=== PATIENT | male | born 1965 | race Caucasian/White ===

== ENCOUNTER 2017-05-13 12:51 | Inpatient (IN) | payer MEDICAID, OTHER ==
[2017-05-13 13:24] LABS: PLATELET COUNT 243 10^3/uL (150-400)
[2017-05-13] MEDS ORDERED: NS 1,000 ML IV ONE (13:29)
[2017-05-13] MEDS ORDERED: ONDANSETRON 4 MG/2 ML VIAL IVP ONE (13:29)
--- NOTE | 2017-05-13 13:29 | EDPHY ---
General Narrative: CHIEF COMPLAINT: Abdominal pain HISTORY OF PRESENT ILLNESS: Patient complains of right lower quadrant abdominal pain. Pain started yesterday afternoon or early evening. It started periumbilical and has migrated to the right lower quadrant. It is rated at 8/10. It is constant in duration. Associated with some nausea and vomiting earlier in the week preceding the pain, that he thought was "a stomach flu." He has had no diarrhea or constipation. He notes a fever at home with a T-max of a 101. No trauma or injury. No urinary complaints. No other associated complaints or modifying factors. REVIEW OF SYSTEMS: Ten systems reviewed and are negative unless otherwise noted in the HPI PCP: None SPECIALISTS: None PAST MEDICAL HISTORY: None PAST SURGICAL HISTORY: No abdominal surgeries. SOCIAL HISTORY: Nonsmoker. Occasional alcohol marijuana use. Works at a [employer]. FAMILY HISTORY: Noncontributory EXAMINATION General Appearance: Alert, no distress Head: normocephalic, atraumatic Eyes: Pupils equal and round, no conjunctival pallor or injection ENT, Mouth: Mucous membranes moist. No erythema or edema. Neck: Normal inspection, supple, non-tender Respiratory: Lungs are clear to auscultation. No wheezing, rhonchi or crackles Cardiovascular: Regular rate and rhythm. No murmur Gastrointestinal: Abdomen is soft and nondistended. There is tenderness in the right lower quadrant at McBurney's point. No guarding. Negative Rovsing. No tympany or rigidity. No CVA tenderness. Back: non-tender, no bony abnormalities Neurological: A&O, nonfocal, normal gait Skin: Warm and dry, no rash. No petechiae or purpura Extremities: Nontender, no pedal edema Psychiatric: Mood and affect normal DIFFERENTIAL DIAGNOSES: Including but not limited to appendicitis, colitis, diverticulitis, adenitis, constipation MDM: 1:29 p.m. Right lower quadrant pain with moderate tenderness in the right lower quadrant. There is no guarding. No peritonitis. Vital signs are within normal limits. Given the location of his pain and the history, I have ordered CT scan of the abdomen pelvis. Laboratory studies are also pending. He is in no acute distress but requesting pain medication and this has been ordered. 2:30 p.m. Laboratory studies reveal mild leukocytosis. There is isolated hyperbilirubinemia but no abnormality of the chemistry otherwise. CT scan pending. 2:[address] scan findings discussed between radiology and Dr. Gresham. No appendicitis but there is inflammation of the retroperitoneum of uncertain etiology, phlegmon versus inflammatory. I will proceed with medicine admission and General surgery has reviewed the CT scan in the ED at this time and does not feel there is a surgical finding. 2:50 p.m. Case discussed with hospitalist Dr. Charles. He will admit the patient to his service. He is admitted in stable condition. I have re-evaluated the patient at this time he is requesting further pain medication. This has been ordered. SUPERVISION: Patient was independently examined, but I discussed the case with my secondary supervising physician Dr. Gresham - Diagnostics Imaging Results: Imaging Impressions Abdomen CT 05/13/17 13:29 Impression: 1. Nonspecific retroperitoneal inflammatory phlegmon of unclear etiology extending from the caudal margin of the pancreas, surrounding the third and fourth portions of the duodenum, and noted along the anterior pararenal and aortocaval spaces. There is a concurrent distal duodenitis and a proximal jejunitis, and this is also seen in association with moderate bilateral hydronephrosis, right greater than left. Differential considerations favor an inflammatory versus infectious process (although an infiltrative neoplastic process is not entirely excluded); clinical correlation and follow-up to assure resolution are recommended. 2. Colonic diverticulosis, without active diverticulitis. 3. Normal CT appearance of the appendix. 4. Mild prostatomegaly. Dr. Darryl Diaz reviewed this with Dr. Luis Cole, and I also conveyed the results to Dr. Ricky Gresham. Findings were discussed at 14:49, on 05/13/2017. - History Smoking Status: Never smoked - Objective Vital Signs: Initial Vital Signs Temperature (C) 98.1 F 05/13/17 12:53 Heart Rate 78 05/13/17 12:53 Respiratory Rate 18 05/13/17 12:53 Blood Pressure 133/81 H 05/13/17 12:53 O2 Sat (%) 97 05/13/17 12:53 O2 Delivery Mode Room Air Allergies/Adverse Reactions: Penicillins Allergy (Mild, Verified 05/13/17 12:56) Rash Home Medications: Medication Instructions Recorded NK [No Known Home Meds] 05/13/17 Laboratory Results: Laboratory Results 05/13/17 13:15 05/13/17 13:15 05/13/17 05/13/17 05/13/17 13:15 13:15 13:15 WBC 12.61 10^3/uL H 10^3/uL (3.80-9.50) RBC 4.35 10^6/uL L 10^6/uL (4.40-6.38) Hgb 16.4 g/dL g/dL (13.7-17.5) Hct 43.8 % % (40.0-51.0) MCV 100.7 fL H fL (81.5-99.8) MCH 37.7 pg H pg (27.9-34.1) MCHC 37.4 g/dL H g/dL (32.4-36.7) RDW 12.0 % % (11.5-15.2) Plt Count 243 10^3/uL 10^3/uL (150-400) MPV 9.8 fL fL (8.7-11.7) Neut % (Auto) 82.9 % H % (39.3-74.2) Lymph % (Auto) 7.1 % L % (15.0-45.0) [place] % (Auto) 8.5 % % (4.5-13.0) Eos % (Auto) 0.9 % % (0.6-7.6) Baso % (Auto) 0.2 % L % (0.3-1.7) Nucleat RBC Rel Count 0.0 % % (0.0-0.2) Absolute Neuts (auto) 10.46 10^3/uL H 10^3/uL (1.70-6.50) Absolute Lymphs (auto) 0.89 10^3/uL L 10^3/uL (1.00-3.00) Absolute Monos (auto) 1.07 10^3/uL H 10^3/uL (0.30-0.80) Absolute Eos (auto) 0.11 10^3/uL 10^3/uL (0.03-0.40) Absolute Basos (auto) 0.03 10^3/uL 10^3/uL (0.02-0.10) Absolute Nucleated RBC 0.00 10^3/uL 10^3/uL (0-0.01) Immature Gran % 0.4 % % (0.0-1.1) Immature Gran # 0.05 10^3/uL 10^3/uL (0.00-0.10) PT 12.8 SEC SEC (12.0-15.0) INR 0.94 (0.83-1.16) APTT 25.8 SEC SEC (23.0-38.0) Sodium 137 mEq/L mEq/L (134-144) Potassium 4.1 mEq/L mEq/L (3.5-5.2) Chloride 97 mEq/L mEq/L (97-110) Carbon Dioxide 26 mEq/l mEq/l (22-31) Anion Gap 14 mEq/L mEq/L (8-16) BUN 12 mg/dL mg/dL (7-23) Creatinine 1.1 mg/dL mg/dL (0.7-1.3) Estimated GFR > 60 Glucose 111 mg/dL H mg/dL (70-100) Calcium 9.9 mg/dL mg/dL (8.5-10.4) Total Bilirubin 2.4 mg/dL H mg/dL (0.1-1.4) Conjugated Bilirubin 0.4 mg/dL mg/dL (0.0-0.5) Unconjugated Bilirubin 2.0 mg/dL H mg/dL (0.0-1.1) AST 45 IU/L IU/L (17-59) ALT 48 IU/L IU/L (21-72) Alkaline Phosphatase 113 IU/L IU/L (38-126) Total Protein 7.2 g/dL g/dL (6.3-8.2) Albumin 4.5 g/dL g/dL (3.5-5.0) Lipase 73 IU/L IU/L (23-300) Medications Given: Discontinued Medications Hydromorphone HCl (Dilaudid) 1 mg IVP EDNOW ONE Stop: 05/13/17 14:51 Last Admin: 05/13/17 14:53 Dose: 1 mg Sodium Chloride (Ns) 1,000 mls @ 0 mls/hr IV EDNOW ONE; Wide Open PRN Reason: Protocol Stop: 05/13/17 13:30 Last Admin: 05/13/17 13:36 Dose: 1,000 mls Morphine Sulfate (Morphine) 4 mg IVP EDNOW ONE Stop: 05/13/17 13:30 Last Admin: 05/13/17 13:36 Dose: 4 mg Ondansetron HCl (Zofran) 4 mg IVP EDNOW ONE Stop: 05/13/17 13:30 Last Admin: 05/13/17 13:36 Dose: 4 mg Departure - Departure Disposition: [facility] Inpatient Acute Clinical Impression: Disorder of retroperitoneal compartment Abdominal pain Qualifiers: Abdominal location: generalized Qualified Code(s): R10.84 - Generalized abdominal pain Condition: Good
[2017-05-13 13:41] LABS: INR 0.94 (0.83-1.16); PROTIME(PATIENT) 12.8 SEC (12.0-15.0)
[2017-05-13] MEDS ORDERED: IOPAMIDOL (ISOVUE-300) 100 ML BTL ONE (13:47)
[2017-05-13] MEDS ORDERED: HYDROmorphONE/DILAUDID 1 MG/ML INJ IVP ONE (14:50)
[2017-05-13] MEDS ORDERED: ONDANSETRON 4 MG/2 ML VIAL IVP PRN (17:05)
[2017-05-13] MEDS ORDERED: ONDANSETRON DISINTEGRATING 4 MG TAB PO PRN (17:05)
[2017-05-13] MEDS: D5W 1/2 NS W/ 20 KCl/L 1,000 ML IV SCH (17:36)
[2017-05-13] MEDS: HYDROmorphONE/DILAUDID 1 MG/ML INJ IVP PRN ×2 (17:44→21:02)
--- NOTE | 2017-05-13 19:30 | GHP ---
[f rep st] HISTORY AND PHYSICAL DATE OF ADMISSION: 05/13/2017 CHIEF COMPLAINT: Abdominal pain. HISTORY OF PRESENT ILLNESS: 52-year-old male with minimal medical problems, who presented with 4 day s of worsening abdominal pain. It started as epigastric pain, but now has included right lower quadr ant and right flank pain. Pain is constant. It does not get worse or better with eating. He initia lly thought he was constipated, but bowel movements have not helped the pain. He has had some chills and a fever up to 101. He has not had any problems urinating. No blood in his stool or dysuria. Candido pham has never had any kidney stones. He does have a history of GERD, but he usually feels that in his chest, and that ranitidine and antacids work. This has worsened since , but the ranitidi ne and antacids have not helped his pain at all. He denies any diarrhea. REVIEW OF SYSTEMS: A 10-point review of systems was obtained, and other than stated was negative. PAST MEDICAL HISTORY: 1. GERD. 2. Had a left kidney obstruction when he was 4, although he does not know the details of this. He h as had surgery on his kidney, and does know it does not work that well. MEDICATIONS: P.r.n. ranitidine and [id number] antacids. SOCIAL HISTORY: No smoking. Works [employer]. FAMILY HISTORY: No urological issue or malignancies. PHYSICAL EXAMINATION: VITAL SIGNS: Afebrile. Blood pressure is 127/79, heart rate 76, oxygen satur ation 96% on room air. GENERAL: Patient is well developed, no apparent distress. HEENT: Nonicteri c sclerae. Extraocular movements intact. Moist mucous membranes. NECK: Supple. No thyromegaly. LUNGS: Good effort. Clear to auscultation bilaterally. CARDIOVASCULAR: Regular rate and rhythm. No murmurs or gallops. ABDOMEN: Decreased bowel sounds. Soft, but a little bit on the firmer side, mild epigastric, but significant right lower quadrant tenderness as well as right tenderness. No re bound or guarding. EXTREMITIES: No clubbing, cyanosis, or edema. SKIN: Without rash. Warm, dry, intact. NEUROLOGIC: Alert and oriented x3. Moving all 4 extremities equally. PSYCH: Normal mood and affect. LABORATORY DATA: White blood cell count is 12, MCV elevated at 100. Total bilirubin was 2.5, mostly unconjugated. UA essentially negative. CT scan of the abdomen and pelvis shows significant retroperitoneal inflammation and a phlegmon adjac ent to pancreas, that also includes the 3rd and 4th portions of the duodenum. There is also hydroneph rosis on the right with compensatory hypertrophy. ASSESSMENT: This is a 52-year-old male presenting with abdominal pain and retroperitoneal inflammati on of uncertain etiology. PLAN: I discussed the case with both Urology, Dr. Isbell and Gastroenterology. Urology feels that th is is not a primary urological problem, that he could have chronic hydronephrosis for some time, or t he primary inflammatory process could be causing some obstruction as well. At this point they do not feel like any intervention would be useful. Discussed the case with Gastroenterology, and they will come see the patient. They are not sure if endoscopy would be helpful. In the meantime, we will st art him on Protonix. We will check a GI pathogen profile to see if there is any viral or bacterial i nfections that may be causing this. At this point, we will continue PPI and bowel rest, and see how things proceed. Surgery did see the patient as well, and they did not believe that he has appendicit is. /[id number]/MODL
[2017-05-13] MEDS: PANTOPRAZOLE SODIUM 40 MG VIAL IVP SCH (21:07)
[2017-05-14] MEDS: HYDROmorphONE/DILAUDID 1 MG/ML INJ IVP PRN ×6 (02:01→22:12)
[2017-05-14] MEDS: D5W 1/2 NS W/ 20 KCl/L 1,000 ML IV SCH ×2 (03:36→15:33)
[2017-05-14 05:37] LABS: PLATELET COUNT 207 10^3/uL (150-400)
[2017-05-14] MEDS: PANTOPRAZOLE SODIUM 40 MG VIAL IVP SCH ×2 (08:22→19:56)
--- NOTE | 2017-05-14 08:24 | HOSPPROG ---
Hospitalist Progress Note Objective: Vital Signs Temp Pulse Resp BP Pulse Ox 37.1 C 86 12 114/73 94 05/14/17 07:17 05/14/17 07:17 05/14/17 07:17 05/14/17 07:17 05/14/17 07:17 Microbiology 05/14/17 01:46 Gastrointestinal Tract Panel (PCR) - Final Stool No Organism Detected Laboratory Results 05/14/17 04:59 05/14/17 04:59 05/13/17 05/14/17 05/15/17 05:59 05:59 05:59 Intake Total 1000 Balance 1000 PT 12.8 SEC (12.0-15.0) 05/13/17 13:15 INR 0.94 (0.83-1.16) 05/13/17 13:15 Laboratory Tests 05/13/17 05/13/17 05/14/17 13:15 13:15 04:59 WBC 12.61 H 11.74 H Hgb 16.4 13.1 L Creatinine 1.1 Total Bilirubin 2.4 H Unconjugated Bilirubin 2.0 H Albumin 05/14/17 04:59 WBC Hgb Creatinine 1.8 H D Total Bilirubin 2.2 H Unconjugated Bilirubin 1.7 H Albumin 3.3 L ICD10 Worksheet Patient Problems: Problems Problem Status Onset Abdominal pain Acute Disorder of retroperitoneal compartment Acute
--- NOTE | 2017-05-14 11:01 | PDMN ---
Medical Necessity Medical necessity: Pt meets IP criteria per MD; est los >2 mn for eval/tx of abdominal pain & retroperitoneal inflammation of uncertain etiology; admit for further workup/monitoring, Urology/GI/Surgery consults, IVFs, IV pain meds/IV Protonix; hx GERD; per H&P & order 05/13/17
--- NOTE | 2017-05-14 13:42 | GCON ---
[f rep st] CONSULTATION DATE OF CONSULTATION: 05/14/2017 REASON FOR CONSULTATION: Abdominal pain. Dear Dr. Charles: Thank you very kindly for asking me to evaluate the patient in consultation for a chief complaint of abdominal pain and fever. He is a pleasant 52-year-old male without significant previous medical history, who developed significant abdominal pain that was periumbilical and interestingly right-sided, radiating into the right flank, that began on [place]. He felt nauseated. He tried to vomit because he felt like it would help him improve his symptoms, but was unable to. He did not have a bowel movement for a few days, but then started passing gas and stool which was somewhat soft, but no real different than his usual bowel pattern. There was no hematochezia or diarrhea. Over the last week since [place] his pain has been intermittently quite problematic, describing sharp, stabbing pain with cramping that got severe enough that he presented to the emergency room last night. A CT scan of the abdomen and pelvis was performed, that showed a significant retroperitoneal inflammatory reaction adjacent to the tail of the pancreas, but also involving some of the later portions of the duodenum and jejunum. These findings are nonspecific and the cause of it is unknown. We are asked to assist with further evaluation and management. PAST MEDICAL HISTORY: Significant for some mild heartburn. 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 MEDICATIONS: Medications on admission are none. PAST SOCIAL HISTORY: No tobacco, no alcohol. He lives and works in [place]. FAMILY HISTORY: Negative for malignancies such as lymphoma, gastric cancer or colon cancer. ALLERGIES: Penicillin. REVIEW OF SYSTEMS: CONSTITUTIONAL: He has been having fever as high as 101. Some nausea. His appetite is pretty poor. He has had some sweats at night, but this has been intermittent. No weight loss that he is aware of. HEENT: Denies headache, sore throat, rhinorrhea, ear pain, neck discomfort or swallowing difficulty. PULMONARY: Denies cough or shortness of breath. CARDIOVASCULAR: Denies chest pain, palpitations, or syncope. GI: He denies dysphagia. He does have some mild heartburn, but this does not sound too significant. He has been nauseous, but no vomiting. He denies diarrhea. He has felt somewhat constipated, but describing this as intermittently not being able to pass gas, although today he is passing flatus. His pain is much improved since admission. GENITOURINARY: He denies any dysuria or hematuria. MUSCULOSKELETAL: Denies myalgias or joint pain. NEUROLOGIC: Denies paresthesias, falls or weakness. DERMATOLOGIC: No rash or jaundice. HEMATOLOGIC: Denies bruising or epistaxis or bleeding. ENDOCRINE: Denies heat or cold intolerance. No polyuria. Denies polydipsia. PSYCHIATRIC: Denies depression, anxiety, or insomnia. PHYSICAL EXAM: VITAL SIGNS: Blood pressure 114/73, pulse of 86, respirations are 12, oxygenation is 94% on room air, temperature is 37.1 with a T-max of 37.4. GENERAL: Healthy and comfortable-appearing thin male, in no acute distress. HEENT: Normocephalic, atraumatic. Oropharynx clear. Sclerae anicteric. NECK: Supple without adenopathy to the anterior cervical chain. No supraclavicular adenopathy. No thyromegaly. No carotid bruit. No jugular venous distention. PULMONARY: Clear to auscultation with good respiratory excursion. Equal fremitus. No chest wall tenderness. CARDIOVASCULAR: Regular rate and rhythm without rub. No obvious gallop. GI: The abdomen is nondistended. Normoactive bowel sounds are present. No bruit or ascites. No organomegaly. No tenderness, rebound, guarding or palpable mass. MUSCULOSKELETAL: Normal gait and station. No palmar erythema. No clubbing. No joint deformity, swelling or warmth. DERMATOLOGIC: No rash or jaundice. NEUROLOGIC: Alert to person, place, and time. Normal speech and affect. Appropriate and able to provide his own history. Motor is a nonfocal exam. Gait does not appear ataxic nor asterixis. DATABASE: Includes a white count of 11.7, hematocrit 37.1 with an MCV of 102, platelets are 207, INR 0.94, PT is 12.8. Sodium 138, potassium 4.3, chloride 104, bicarbonate 21, BUN 15, creatinine is elevated today at 1.8 from an admission creatinine of 1.1, total bilirubin is elevated at 2.2 with a direct of 0.5; unconjugated 1.7. AST 22, ALT 35, alkaline phosphatase 88. Lipase on admission is 73. CT scan of the abdomen and pelvis on May 13, 2017: This shows fatty liver that is mildly enlarged, bile ducts are normal, gallbladder is normal. The pancreas is normal in enhancement and contour; however, there is an inflammatory reaction in the pararenal space along the caudal margin of the pancreatic body and tail that extends inferiorly involving the 3rd and 4th portion of the duodenum which is mildly thickened. There is also some inflammatory thickening involving the right anterior perirenal space adjacent to the proximal right ureter. Spleen and adrenal glands are normal. The right kidney is larger than the left with moderate bilateral hydronephrosis. There is no obstructing lesion. The stomach 1st and 2nd portions of the duodenum are normal. The inflammatory stranding is around the 3rd and 4th portions extending down to the ligament of Treitz and also into the proximal jejunum, but the mid and distal jejunum appeared normal. There were colonic diverticula without diverticulitis. There is no pneumoperitoneum. The vascular structures of the mesentery are normal. The portal vein is patent. The abdominal wall is normal. The urinary bladder is distended with asymmetric wall thickening. No urinary bladder calculus. IMPRESSION: 1. Abdominal pain, principally right-sided associated. 2. Nausea. 3. Radiographic abnormality including retroperitoneal inflammation extending around the right pararenal space. 4. Interval development of acute renal insufficiency. 5. Duodenal and jejunal thickening of an unclear nature. 6. Unconjugated hyperbilirubinemia. RECOMMENDATIONS: 1. Endoscopic evaluation of the duodenal and jejunal thickening could be performed with enteroscopy to help with diagnostic evaluation, but clinically I feel that the process is something more involving the right retroperitoneum and a renal process, especially given the development of his acute renal insufficiency. This associated with his indirect hyperbilirubinemia does raise the possibility of possible hemolytic uremic syndrome or some other diagnosis that could be presenting systemically in this way. 2. Stool PCR for infection. U/A for proteinuria 3. I would recommend a clear liquid diet and Nephrology consultation at first. 4. If endoscopic evaluation is required for diagnostic purposes, this could be done tomorrow. I would recommend n.p.o. after midnight and repeating his labs and awaiting Nephrology's consultation input to see if there is something systemic can be diagnosed without the need for enteroscopy. 5. Laparoscopy could also be used to identify the process in the retroperitoneal space, but I think this should only be done after enteroscopy is attempted. 6. I have spoken with Dr. Webb about his case. We will pursue a Nephrology consultation first and await labs. I will reassess tomorrow and see if the need for enteroscopy exists which we can perform for tissue biopsy and diagnosis. 7. Currently I am unable to really explain the retroperitoneal inflammatory process definitively, but my instinct feels that this is infectious and may or may not be primarily GI in nature. 8. The bladder wall thickening and hydronephrosis may also need to be addressed with urology. Thank you very kindly for allowing me to be involved in the care for the patient. He is aware of our diagnostic options and agrees with following a conservative plan with further specialty consultation, advancing his diet and consideration for enteroscopy tomorrow if needed. /[id number]/MODL MTDD
--- NOTE | 2017-05-14 14:40 | ASMTCMCOM ---
CM Note CM Note Notes: 05/12/2018 Case Management Note Reviewed chart. Pt admitted for intractable abdominal pain and retroperitoneal inflammation. There are no case management d/c needs identifiied at this time d/t pt age and activity levels prior to admission. There are no PT or OT evals ordered at this time. Case Management d/c poc: anticipating independent with follow up as directed. Case Management available if needs change. Date Signed: 05/14/2017 02:40 PM Electronically Signed By:Stacey Bagley RN
--- NOTE | 2017-05-14 17:40 | HOSPPROG ---
Hospitalist Progress Note Assessment/Plan: 52-year-old male new onset of epigastric and right-sided abdominal pain in the last week. CT scan post admission notes phlegmon in the area of the 2nd and 3rd part of the duodenum with duodenitis and ileitis also noted. Patient has also developed new onset renal failure and was noted to have bilateral hydronephrosis on the CT scan. Etiology of this mass is unclear. The pancreas appears normal on CT. He has received IV fluids today and a repeat BMP will be done to assess if the elevated creatinine is secondary to pre renal state. Urology is reviewed the case and finds no urologic issues. Surgery finds no immediate surgical issues. GI is consulted is considering and EGD on 05/15. Patient new to me today. Case was discussed with Gastroenterology and CT scan was reviewed with Radiology. -acute abdominal pain with a phlegmon in the retroperitoneal space. Lipase is normal -acute renal failure, possible hepatorenal syndrome -bilateral hydronephrosis of undetermined etiology. -history of GERD Plan: Hydration through the night with a clear liquid diet and then NPO after midnight for possible EGD in the a.m.. The BMP will be repeated to assess his renal function as to whether it was pre renal. If the renal impairment persistent nephrology consult will be obtained - Subjective: Reports some abdominal pain but says that maybe slightly improved. Will appetite is present but he does not have any vomiting. He has moved his bowels in the last several days without hematemesis or hematochezia Objective: Vital Signs Temp Pulse Resp BP Pulse Ox 37 C 82 14 113/62 95 05/14/17 15:28 05/14/17 15:28 05/14/17 15:28 05/14/17 15:28 05/14/17 15:28 Microbiology 05/14/17 01:46 Gastrointestinal Tract Panel (PCR) - Final Stool No Organism Detected Laboratory Results 05/14/17 04:59 05/14/17 04:59 05/13/17 05/14/17 05/15/17 05:59 05:59 05:59 Intake Total 1000 638 Balance 1000 638 PT 12.8 SEC (12.0-15.0) 05/13/17 13:15 INR 0.94 (0.83-1.16) 05/13/17 13:15 - Time Spent With Patient Time Spent with Patient: greater than 35 minutes Time Spent with Patient: Greater than 35 minutes spent on this patients care, greater than 50% of time spent counseling, educating, and coordinating care regarding the above mentioned plan. - Pending Discharge Pending Discharge Within 24 Hours: No Pending Discharge Within 48 Hours: No - Physical Exam Constitutional: chronically ill appearing Eyes: PERRL, anicteric sclera Ears, Nose, Mouth, Throat: moist mucous membranes Cardiovascular: regular rate and rhythym, no murmur, rub, or gallop Respiratory: no respiratory distress, no rales or rhonchi, clear to auscultation Gastrointestinal: tenderness, guarding, distension Genitourinary: no bladder fullness Skin: warm Musculoskeletal: full muscle strength Neurologic: AAOx3, CN II-XII Intact Psychiatric: interacting appropriately ICD10 Worksheet Patient Problems: Problems Problem Status Onset Abdominal pain Acute Disorder of retroperitoneal compartment Acute
[2017-05-14 18:35] LABS: PLATELET COUNT 222 10^3/uL (150-400)
[2017-05-14] MEDS: ACETAMINOPHEN 325 MG TAB PO PRN (22:52)
[2017-05-15] MEDS: D5W 1/2 NS W/ 20 KCl/L 1,000 ML IV SCH (00:39)
[2017-05-15] MEDS: HYDROmorphONE/DILAUDID 1 MG/ML INJ IVP PRN ×3 (03:43→14:58)
[2017-05-15 05:17] LABS: PLATELET COUNT 196 10^3/uL (150-400)
[2017-05-15] MEDS: PANTOPRAZOLE SODIUM 40 MG VIAL IVP SCH ×2 (10:02→20:23)
--- NOTE | 2017-05-15 10:18 | HOSPPROG ---
Hospitalist Progress Note Assessment/Plan: 52-year-old male new onset of epigastric and right-sided abdominal pain in the last week. CT scan post admission notes phlegmon in the area of the 2nd and 3rd part of the duodenum with duodenitis and ileitis also noted. Patient has also developed new onset renal failure and was noted to have bilateral hydronephrosis on the CT scan. Etiology of this mass is unclear. The pancreas appears normal on CT. He has received IV fluids today and a repeat BMP will be done to assess if the elevated creatinine is secondary to pre renal state. Urology is reviewed the case and finds no urologic issues. Surgery finds no immediate surgical issues. GI is consulted is considering and EGD on 05/15. Patient new to me today. Case was discussed with Gastroenterology and CT scan was reviewed with Radiology. -acute abdominal pain with a phlegmon in the retroperitoneal space. Lipase is normal -acute renal failure, possible hepatorenal syndrome -bilateral hydronephrosis of undetermined etiology. -history of GERD Plan: Hydration through the night with a clear liquid diet and then NPO after midnight for possible EGD in the a.m.. The BMP will be repeated to assess his renal function as to whether it was pre renal. If the renal impairment persistent nephrology consult will be obtained - Subjective: Patient feeling well without complaints just has some fullness in his abdomen without nausea Objective: Vital Signs Temp Pulse Resp BP Pulse Ox 37.1 C 91 14 118/81 H 95 05/15/17 07:16 05/15/17 07:16 05/15/17 07:16 05/15/17 07:16 05/15/17 07:16 Microbiology 05/14/17 01:46 Gastrointestinal Tract Panel (PCR) - Final Stool No Organism Detected Laboratory Results 05/15/17 04:42 05/15/17 04:42 05/14/17 05/15/17 05/16/17 05:59 05:59 05:59 Intake Total 1000 1838 Output Total 1000 Balance 1000 838 PT 12.8 SEC (12.0-15.0) 05/13/17 13:15 INR 0.94 (0.83-1.16) 05/13/17 13:15 Laboratory Tests 05/13/17 05/13/17 05/14/17 13:15 13:15 04:59 WBC 12.61 H 11.74 H Hgb 16.4 Creatinine 1.1 Unconjugated Bilirubin 2.0 H Albumin 05/14/17 05/14/17 05/14/17 04:59 18:27 18:27 WBC 12.11 H Hgb Creatinine 1.8 H D 2.0 H Unconjugated Bilirubin 1.7 H Albumin 05/15/17 05/15/17 04:42 04:42 WBC 9.81 H Hgb 12.6 L Creatinine 1.8 H Unconjugated Bilirubin 1.5 H Albumin 3.0 L - Time Spent With Patient Time Spent with Patient: greater than 35 minutes Time Spent with Patient: Greater than 35 minutes spent on this patients care, greater than 50% of time spent counseling, educating, and coordinating care regarding the above mentioned plan. - Pending Discharge Pending Discharge Within 24 Hours: No Pending Discharge Within 48 Hours: No - Physical Exam Constitutional: no apparent distress Eyes: PERRL Ears, Nose, Mouth, Throat: moist mucous membranes, hearing normal Cardiovascular: regular rate and rhythym, no murmur, rub, or gallop Respiratory: no respiratory distress, no rales or rhonchi Gastrointestinal: no palpable masses, tenderness, distension Skin: warm Musculoskeletal: full muscle strength ICD10 Worksheet Patient Problems: Problems Problem Status Onset Abdominal pain Acute Disorder of retroperitoneal compartment Acute
[2017-05-15] MEDS ORDERED: LR 1,000 ML IV ONE (12:10)
[2017-05-15] MEDS ORDERED: PROPOFOL/EMULSION 500 MG/50 ML BOTTLE IV ONE (12:27)
[2017-05-15] MEDS ORDERED: PROPOFOL 200 MG/20 ML VIAL ONE (12:44)
[2017-05-15] MEDS ORDERED: LIDOCAINE 2% 5 ML SDV ONE (12:51)
[2017-05-15] MEDS ORDERED: METOCLOPRAMIDE 10 MG/2 ML VIAL IVP PRN (12:54)
[2017-05-15] MEDS ORDERED: fentaNYL 100 MCG/2 ML INJ IVP PRN (12:54)
[2017-05-15] MEDS ORDERED: DIAZEPAM 10 MG/2 ML SYR IVP PRN (12:54)
[2017-05-15] MEDS ORDERED: LR 500 ML IV PRN (12:54)
[2017-05-15] MEDS ORDERED: NALOXONE HCL 0.4 MG/ML INJ IVP PRN (12:54)
[2017-05-15] MEDS ORDERED: DEXAMETHASONE 4 MG/ML VIAL IVP PRN (12:54)
[2017-05-15] MEDS ORDERED: ALBUTEROL 3 ML DEYVIAL IH PRN (12:54)
--- NOTE | 2017-05-15 12:54 | PDANEPAE ---
ANE Past Medical History - Pulmonary History Hx Oxygen in Use at Home: No Hx Sleep Apnea: No Sleep Apnea Screening Result - Last Documented: Negative - Endocrine History Hx Diabetes: No - Chronic Pain History Chronic Pain: No ANE Review of Systems Review of Systems: ANE Patient History - Allergies Allergies/Adverse Reactions: Penicillins Allergy (Mild, Verified 05/13/17 12:56) Rash - Home Medications Home Medications: NK [No Known Home Meds] 05/13/17 [Last Taken Unknown] - NPO status NPO Since - Liquids (Date): 05/15/17 NPO Since - Liquids (Time): 00:01 NPO Since - Solids (Date): 05/15/17 NPO Since - Solids (Time): 00:01 - Smoking Hx Smoking Status: Never smoked ANE Labs/Vital Signs - Labs Result Diagrams: 05/15/17 04:42 05/15/17 04:42 - Vital Signs Blood Pressure: 130/98 Heart Rate: 91 Respiratory Rate: 14 O2 Sat (%): 99 Height: 175.26 cm Weight: 71.804 kg ANE Physical Exam - Airway Neck exam: FROM Mallampati Score: Class 1 Mouth exam: normal dental/mouth exam - Pulmonary Pulmonary: no respiratory distress, no rales or rhonchi, clear to auscultation - Cardiovascular Cardiovascular: regular rate and rhythym, no murmur, rub, or gallop - ASA Status ASA Status: III ANE Anesthesia Plan Anesthesia Plan: GA with mask
--- NOTE | 2017-05-15 12:55 | PDGENHP ---
History & Physical Chief Complaint: abdominal pain History of Present Illness: 52 year old male presents for evaluation of abnormal imaging and abdominal pain. C/o of midepigastrium and right sided pain. CT scan revealed inflammation in duodenum and jejunum. Pertinent Past, Social, Family History: see consult note by Dr. Hernandez. Relevant Physical Exam: HEENT: anicteric. CV: RRR + s1s2. lungs: CTAB No w/r/ r. Abd: + tenderness in upper quadrants. Cardiorespiratory Assessment: ASA 3
[2017-05-15] MEDS ORDERED: NS 500 ML IV SCH (13:00)
--- NOTE | 2017-05-15 13:09 | GIREPORT ---
[facility] - Endoscopy Department Patient Name: Nain Del Real Procedure Date: 05/15/2017 11:45 AM Patient Type: Inpatient Attending MD/ ER Physician: Esdras Choe MD Procedure: Small bowel enteroscopy Indications: Unexplained epigastric abdominal distress/pain, Unexplained abdominal distress/pain in the right upper quadrant, Abnormal abdominal CT Patient Profile: 52 year old male presents for evaluation of abdominal pain (midepi and RUQ) as well as abnormal imaging. Providers: Esdras Choe MD Medicines: Monitored Anesthesia Care Complications: No immediate complications. Estimated blood loss: Minimal. Description of Procedure: After obtaining informed consent, the endoscope was passed under direct vision. Throughout the procedure, the patient's blood pressure, pulse, and oxygen saturations were monitored continuously. The Colonoscope was introduced through the mouth, and advanced to the mid-jejunum. After obtaining informed consent, the endoscope was passed under direct visio n. Throughout the procedure, the patient's blood pressure, pulse, and oxyg en saturations were monitored continuously.The small bowel enteroscopy was accomplished without difficulty. The patient tolerated the procedure we ll. Findings: The examined esophagus was normal. A small hiatal hernia was present. Patchy mildly erythematous mucosa was found in the gastric body and in the gastric antrum. Biopsies were taken with a cold forceps for histology. The pylorus was 80cms from the gums. There was no evidence of significant pathology in the entire examined duodenum. Biopsies were taken with a cold forceps for histology. There was no evidence of significant pathology in the mid-jejunum. Biop sies were taken with a cold forceps for histology. The scope was advanced approximately 90cms from the pylorus. Estimated Blood Loss: Estimated blood loss was minimal. Post Op Diagnosis: - Normal esophagus. - Small hiatal hernia. - Erythematous mucosa in the gastric body and antrum. Biopsied. - Normal examined duodenum. Biopsied. - Etiology? No obvious cause of symptoms seen. Doubt biopsies will be revealing. Infectious versus inflammatory versus pancreatitis versus ot her? Will recheck amylase and lipase level. Await biopsy results. - The examined portion of the jejunum was normal. Biopsied. Recommendation: - [facility]. - Clear liquid diet. - Await pathology results. - Blood work. - Thank you for allowing me to participate in the care of your patient. Attending Participation: I personally performed the entire procedure. Esdras Choe MD Esdras Choe MD 05/15/2017 1:08:45 PM This report has been signed electronicallyEsdras Choe MD Number of Addenda: 0 Note Initiated On: 05/15/2017 11:45 AM [email or web address]}
--- NOTE | 2017-05-15 13:15 | POSTANESTH ---
Post Anesthetic Evaluation Cardiovascular Status: Normal, Stable, Similar to Pre-Op Cond Respiratory Status: Normal, Stable, Similar to Pre-op Cond. Level of Consciousness/Mental Status: Can Participate in Eval Pain Control: Adequate, Prn Tx Ordered Nausea/Vomiting Control: Adequate, Prn Tx Ordered Complications Possibly Related to Anesthesia: None Noted
--- NOTE | 2017-05-15 13:59 | PDCONSULT ---
[employer] Note: CC: Abdominal pain HPI: The patient is a 52 y/o M with a known h/o congenital renal disease requiring surgery at age 4 as well as GERD. He presented a couple of days ago after 1 weeks of central abdominal pain with some vomiting. No fevers, diarrhea or other ROS however he thought he had "the flu." He admits to some NSAID use and no new abx. Had a CT with contrast upon admission that revealed b/l hydronephrosis R>L with chronic cortical scarring on the left, which is the kidney he knew "did not work." He has no h/o nephrolithiasis and denies symptoms of UTI, LE edema or other ROS. Currently feeling improved with pain medications, however, notes he has been using increased doses of PPI's recently. PMH: GERD PSH: Non-smoker, drinks 15 ETOH per week PFH: Non-contributory, no renal disease PSX: Renal surgery, varicose vein surgery, anal fissure repair 2004 ROS: Negative except as per HPI. Meds: List reviewed. Allergies: PCN Objective: Temp Pulse Resp BP Pulse Ox 36.8 C 78 16 131/81 H 95 05/15/17 13:55 05/15/17 13:55 05/15/17 13:55 05/15/17 13:55 05/15/17 13:55 Physical Exam: Gen: A+Ox3, NAD HEENT: EOMI, no jaundice Neck: Supple, no lymphadenopathy CV: RRR, no friction rub RESP: CTA b/l ABD: Soft, NT, ND, +BS EXT: No edema Neuro: Non-focal Labs: WBC 9.81 10^3/uL (3.80-9.50) H 05/15/17 04:42 RBC 3.49 10^6/uL (4.40-6.38) L 05/15/17 04:42 Hgb 12.6 g/dL (13.7-17.5) L 05/15/17 04:42 Hct 36.1 % (40.0-51.0) L 05/15/17 04:42 MCV 103.4 fL (81.5-99.8) H 05/15/17 04:42 MCH 36.1 pg (27.9-34.1) H 05/15/17 04:42 MCHC 34.9 g/dL (32.4-36.7) 05/15/17 04:42 RDW 12.0 % (11.5-15.2) 05/15/17 04:42 Plt Count 196 10^3/uL (150-400) 05/15/17 04:42 MPV 9.8 fL (8.7-11.7) 05/15/17 04:42 Neut % (Auto) 77.6 % (39.3-74.2) H 05/15/17 04:42 Lymph % (Auto) 10.6 % (15.0-45.0) L 05/15/17 04:42 [place] % (Auto) 9.1 % (4.5-13.0) 05/15/17 04:42 Eos % (Auto) 2.1 % (0.6-7.6) 05/15/17 04:42 Baso % (Auto) 0.3 % (0.3-1.7) 05/15/17 04:42 Nucleat RBC Rel Count 0.0 % (0.0-0.2) 05/15/17 04:42 Absolute Neuts (auto) 7.61 10^3/uL (1.70-6.50) H 05/15/17 04:42 Absolute Lymphs (auto) 1.04 10^3/uL (1.00-3.00) 05/15/17 04:42 Absolute Monos (auto) 0.89 10^3/uL (0.30-0.80) H 05/15/17 04:42 Absolute Eos (auto) 0.21 10^3/uL (0.03-0.40) 05/15/17 04:42 Absolute Basos (auto) 0.03 10^3/uL (0.02-0.10) 05/15/17 04:42 Absolute Nucleated RBC 0.00 10^3/uL (0-0.01) 05/15/17 04:42 Immature Gran % 0.3 % (0.0-1.1) 05/15/17 04:42 Immature Gran # 0.03 10^3/uL (0.00-0.10) 05/15/17 04:42 PT 12.8 SEC (12.0-15.0) 05/13/17 13:15 INR 0.94 (0.83-1.16) 05/13/17 13:15 APTT 25.8 SEC (23.0-38.0) 05/13/17 13:15 Sodium 136 mEq/L (134-144) 05/15/17 04:42 Potassium 4.4 mEq/L (3.5-5.2) 05/15/17 04:42 Chloride 104 mEq/L (97-110) 05/15/17 04:42 Carbon Dioxide 22 mEq/l (22-31) 05/15/17 04:42 Anion Gap 10 mEq/L (8-16) 05/15/17 04:42 BUN 15 mg/dL (7-23) 05/15/17 04:42 Creatinine 1.8 mg/dL (0.7-1.3) H 05/15/17 04:42 Estimated GFR 40 05/15/17 04:42 Glucose 114 mg/dL (70-100) H 05/15/17 04:42 Calcium 8.4 mg/dL (8.5-10.4) L 05/15/17 04:42 Total Bilirubin 2.1 mg/dL (0.1-1.4) H 05/15/17 04:42 Conjugated Bilirubin 0.6 mg/dL (0.0-0.5) H 05/15/17 04:42 Unconjugated Bilirubin 1.5 mg/dL (0.0-1.1) H 05/15/17 04:42 AST 28 IU/L (17-59) 05/15/17 04:42 ALT 40 IU/L (21-72) 05/15/17 04:42 Alkaline Phosphatase 119 IU/L (38-126) 05/15/17 04:42 Total Protein 5.2 g/dL (6.3-8.2) L 05/15/17 04:42 Albumin 3.0 g/dL (3.5-5.0) L 05/15/17 04:42 Lipase 73 IU/L (23-300) 05/13/17 13:15 Urine Color YELLOW 05/13/17 16:35 Urine Appearance CLEAR 05/13/17 16:35 Urine pH 6.0 (5.0-7.5) 05/13/17 16:35 Ur Specific [place] 1.020 (1.002-1.030) 05/13/17 16:35 Urine Protein NEGATIVE (NEGATIVE) 05/13/17 16:35 Urine Ketones TRACE (NEGATIVE) H 05/13/17 16:35 Urine Blood 1+ (NEGATIVE) H 05/13/17 16:35 Urine Nitrate NEGATIVE (NEGATIVE) 05/13/17 16:35 Urine Bilirubin NEGATIVE (NEGATIVE) 05/13/17 16:35 Urine Urobilinogen NEGATIVE EU (0.2-1.0) 05/13/17 16:35 Ur Leukocyte Esterase NEGATIVE (NEGATIVE) 05/13/17 16:35 Urine RBC 1-3 /hpf (0-3) 05/13/17 16:35 Urine WBC 1-3 /hpf (0-3) 05/13/17 16:35 Ur Epithelial Cells NONE SEEN /lpf (NONE-1+) 05/13/17 16:35 Ur Random Creatinine 64.6 mg/dL 05/15/17 06:58 Ur Random Sodium 80 mEq/L (30-90) 05/15/17 06:58 Urine Glucose NEGATIVE (NEGATIVE) 05/13/17 16:35 Imaging: Results reviewed. A/P:The patient is a 52 y/o M with a known PMH of renal atrophy as a child who presented with abdominal pain 2 days ago and is found to have b/l hydronephrosis as well as an abdominal mass of unknown origin with CHARITY. Etiology unclear and may be obstructive, vs pre-renal/ATN with GI symptoms, in addition to possible JOSE ELIAS with dehydration and contrast exposure. It is difficult to differentiate whether the R hydronephrosis is chronic or acute and CT may not reveal obstruction. CHARITY on CKD -baseline Cr 1.1mg/dL -Cr now 1.8 -place hayes -urinalysis reveals 1+ blood and no proteinuria -urine sodium elevated -would avoid NSAIDs and contrast -monitor UO -stop PPI -agree with fluids for now -discuss cystoscopy with urology as outpatient given hydronephrosis and hematuria HTN/vol: -BP well controlled on no meds GI: -s/p EGD with biopsy -results pending -resent amylase/lipase per primary team Consult appreciated, will continue to follow.
--- NOTE | 2017-05-15 17:03 | HOSPPROG ---
Hospitalist Progress Note Assessment/Plan: 52-year-old male new onset of epigastric and right-sided abdominal pain in the last week. CT scan post admission notes phlegmon in the area of the 2nd and 3rd part of the duodenum with duodenitis and ileitis also noted. Patient has also developed new onset renal failure and was noted to have bilateral hydronephrosis on the CT scan. Etiology of this mass is unclear. The pancreas appears normal on CT. Creatinine is risen to 2.0 and then fell to 1.8. CT scan shows hydronephrosis. Case was discussed with Gastroenterology and with Nephrology and Nephrology will consult a Kumar catheter has been placed. The EGD today by GI was normal. Biopsies are pending. Further evaluation post placement of Kumar will be done by Nephrology. Urology consult may be necessary tomorrow following lab findings in the morning. -acute abdominal pain with a phlegmon in the retroperitoneal space. Lipase is normal -acute renal failure, possible hepatorenal syndrome -bilateral hydronephrosis of undetermined etiology. -history of GERD Plan: Continue hydration. Will put on a renal diet as it will have low potassium per request of Nephrology. - Subjective: No complaints reports his abdomen just feels full but the pain is less. Objective: Vital Signs Temp Pulse Resp BP Pulse Ox 37 C 75 14 115/68 95 05/15/17 16:00 05/15/17 16:00 05/15/17 16:00 05/15/17 16:00 05/15/17 16:00 Laboratory Results 05/15/17 04:42 05/15/17 04:42 05/14/17 05/15/17 05/16/17 05:59 05:59 05:59 Intake Total 1000 1838 1000 Output Total 1000 Balance 7898 888 0564 PT 12.8 SEC (12.0-15.0) 05/13/17 13:15 INR 0.94 (0.83-1.16) 05/13/17 13:15 - Time Spent With Patient Time Spent with Patient: greater than 35 minutes Time Spent with Patient: Greater than 35 minutes spent on this patients care, greater than 50% of time spent counseling, educating, and coordinating care regarding the above mentioned plan. - Pending Discharge Pending Discharge Within 24 Hours: No Pending Discharge Within 48 Hours: No - Physical Exam Constitutional: no apparent distress Eyes: PERRL, anicteric sclera Ears, Nose, Mouth, Throat: moist mucous membranes Cardiovascular: regular rate and rhythym, no murmur, rub, or gallop Respiratory: no respiratory distress, no rales or rhonchi Gastrointestinal: normoactive bowel sounds, soft, non-tender abdomen, tenderness , distension Genitourinary: no bladder fullness Skin: warm Musculoskeletal: full muscle strength Neurologic: AAOx3, CN II-XII Intact Psychiatric: interacting appropriately ICD10 Worksheet Patient Problems: Problems Problem Status Onset Abdominal pain Acute Disorder of retroperitoneal compartment Acute
[2017-05-15] MEDS: ACETAMINOPHEN 325 MG TAB PO PRN (20:22)
[2017-05-16] MEDS: ACETAMINOPHEN 325 MG TAB PO PRN ×2 (00:26→16:54)
[2017-05-16 05:20] LABS: PLATELET COUNT 234 10^3/uL (150-400)
[2017-05-16] MEDS: D5W 1/2 NS W/ 20 KCl/L 1,000 ML IV SCH (05:51)
[2017-05-16] MEDS: PANTOPRAZOLE SODIUM 40 MG VIAL IVP SCH (10:11)
--- NOTE | 2017-05-16 10:40 | SOAPPROG ---
STACY Progress Note Assessment/Plan: A/P:The patient is a 52 y/o M with a known PMH of renal atrophy as a child who presented with abdominal pain 2 days ago and is found to have b/l hydronephrosis as well as an abdominal mass of unknown origin with CHARITY. Etiology unclear and may be obstructive, vs pre-renal/ATN with GI symptoms, in addition to possible JOSE ELIAS with dehydration and contrast exposure. It is difficult to differentiate whether the R hydronephrosis is chronic or acute and CT may not reveal obstruction. CHARITY on CKD -baseline Cr 1.1mg/dL -Cr 1.8 now 1.0 with hayes -will need to d/c with hayes and leave in until f/u with urology -urinalysis reveals 1+ blood and no proteinuria -would avoid NSAIDs and contrast -good UO -hematuria f/u for cystoscopy with urology -may stop fluids and allow patient to drink -will sign off, will also arrange renal f/u for CKD GI: -s/p EGD with biopsy -results pending -management per primary team appreciated 05/16/17 10:36 Subjective: UO improved with hayes. Feeling a little better. Objective: Vital Signs Temp Pulse Resp BP Pulse Ox 36.9 C 71 12 105/62 96 05/16/17 07:32 05/16/17 07:32 05/16/17 07:32 05/16/17 07:32 05/16/17 07:32 Laboratory Results 05/16/17 05:06 05/16/17 05:06 05/15/17 05/16/17 05/17/17 05:59 05:59 05:59 Intake Total 1838 2950 Output Total 1000 2150 Balance 838 800 PT 12.8 SEC (12.0-15.0) 05/13/17 13:15 INR 0.94 (0.83-1.16) 05/13/17 13:15 Physical Exam - Physical Exam General Appearance: WD/WN, alert, no apparent distress EENT: PERRL/EOMI, normal ENT inspection Neck: non-tender, full range of motion, supple Respiratory: chest non-tender, lungs clear, normal breath sounds Cardiac/Chest: normal peripheral pulses, regular rate, rhythm Abdomen: normal bowel sounds, non-tender, soft Male Genitalia: other (hayes bag in place, dark urine) Skin: normal color, warm/dry Extremities: normal range of motion, non-tender Neuro/Psych: no motor/sensory deficits, alert, normal mood/affect, oriented x 3 ICD10 Worksheet Patient Problems: Problems Problem Status Onset Abdominal pain Acute Disorder of retroperitoneal compartment Acute
--- NOTE | 2017-05-16 12:37 | SOAPPROG ---
SOAP Progress Note Assessment/Plan: Assessment: Plan: 05/16/17 12:31 A/P 1. Abdominal pain- with retroperitoneal phlegmon and inflammation in small bowel. S/p EGD with biopsies but no obvious cause of symptoms. Infectious versus in after inflammatory versus other? Pancreatic enzymes normal. Symptoms much improved after Kumar? Will need repeat CT scan in 6 weeks to ensure that no persistent imaging abnormalities. Will follow up on biopsy results. Subjective: cc: abdominal pain Much improved after Kumar. Objective: Vital Signs Temp Pulse Resp BP Pulse Ox 36.9 C 71 12 105/62 96 05/16/17 07:32 05/16/17 07:32 05/16/17 07:32 05/16/17 07:32 05/16/17 07:32 Laboratory Results 05/16/17 05:06 05/16/17 05:06 05/15/17 05/16/17 05/17/17 05:59 05:59 05:59 Intake Total 1838 2950 Output Total 1000 2150 Balance 838 800 PT 12.8 SEC (12.0-15.0) 05/13/17 13:15 INR 0.94 (0.83-1.16) 05/13/17 13:15 Physical Exam - Physical Exam General Appearance: alert, no apparent distress EENT: No scleral icterus (R), No scleral icterus (L) Respiratory: lungs clear, normal breath sounds, No rales, No rhonchi, No wheezing Cardiac/Chest: regular rate, rhythm, No bradycardia, No tachycardia, No diastolic murmur, No systolic murmur Abdomen: normal bowel sounds, non-tender, soft, No pulsatile mass, No distended , No guarding, No rebound Skin: normal color, warm/dry Neuro/Psych: normal mood/affect, oriented x 3, No abnormal family practice md II-XII ICD10 Worksheet Patient Problems: Problems Problem Status Onset Abdominal pain Acute Disorder of retroperitoneal compartment Acute
[2017-05-16 15:37] VITALS: BP 100/63; PULSE 88; RESP 16; TEMP 97.5; O2SAT 95
--- NOTE | 2017-05-16 16:56 | GDS ---
[f rep st] DISCHARGE SUMMARY NEW AND ACUTE DIAGNOSES ON THIS ADMISSION: 1. Acute abdominal phlegmon, retroperitoneal. 2. Right hydronephrosis with acute kidney injury, resolved with Kumar catheter placement. 3. Acute renal failure. 4. History of gastroesophageal reflux disease. CONSULTATIONS: Gastroenterology and Nephrology. PROCEDURES: EGD performed by Dr. Esdras Choe, which was entirely normal. 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 He was found to have a retroperitoneal phlegmon and a left atre tic kidney, along with bilateral hydronephrosis. EGD was entirely normal, and could not access the p hlegmon. A Kumar catheter was placed and relieved the gentleman's abdominal pain and his acute renal failure, which was expressed with a creatinine as high as 2.0; fell to 1.0 following placement of th e Kumar catheter. Kumar catheter was left in place. As the gentleman's pain was relieved, he was re ferred for outpatient Urology evaluation. DISCHARGE MEDICATIONS: Tylenol 500-1000 mg q.6 hours p.r.n. pain. PLAN: Gentleman will be discharged with a Kumar catheter and instructions with a leg bag for its con tinual use. I have spoken with Dr. Yunior Mckeon, who has agreed to an outpatient referral, and a referr al has been made. The gentleman is to call [phone] for a Urology evaluation as soon as possible . TIME SPENT: This discharge required 45 minutes, greater than 50% to classification counselor and coordinate care. /[id number]
== END 2017-05-16 18:01 | disposition home or self-care (01) | DRG 372 ==
LOC: F3E 15:45
PROVIDERS: ADMIT Internal Medicine; ATTEND Internal Medicine Pulmonary Disease
PROC: 0T9B70Z Drainage of Bladder with Drainage Device, Via Natural or Artificial Opening (ICD-10-PCS; 2017-05-15)
PROC: 0DB98ZX Excision of Duodenum, Via Natural or Artificial Opening Endoscopic, Diagnostic (ICD-10-PCS; principal; 2017-05-15 11:45)
PROC: 0DB68ZX Excision of Stomach, Via Natural or Artificial Opening Endoscopic, Diagnostic (ICD-10-PCS; principal; 2017-05-15 11:45)
DX: K68.19 Other retroperitoneal abscess (principal); N13.30 Unspecified hydronephrosis; N17.9 Acute kidney failure, unspecified; E80.6 Other disorders of bilirubin metabolism; K31.7 Polyp of stomach and duodenum; K21.9 Gastro-esophageal reflux disease without esophagitis; N26.1 Atrophy of kidney (terminal); K57.30 Diverticulosis of large intestine without perforation or abscess without bleeding; K44.9 Diaphragmatic hernia without obstruction or gangrene; Z88.0 Allergy status to penicillin
CPT/HCPCS: 96374; J1170; J2405; J2704; Q9967

== ENCOUNTER → 2017-07-01 | Outpatient (CLI) | payer MEDICAID ==
[~2017-07-01] MED LIST: IOPAMIDOL (ISOVUE-300) 100 ML BTL ONE
== END ==
LOC: FIMAGING 07:39
PROVIDERS: ATTEND Family Medicine
DX: N13.30 Unspecified hydronephrosis (principal); K57.30 Diverticulosis of large intestine without perforation or abscess without bleeding
CPT/HCPCS: Q9967

== ENCOUNTER → 2017-07-27 | Outpatient (CLI) | payer MEDICAID ==
[~2017-07-27] MED LIST changes: +GADOBUTROL 10 ML VIAL IVP ONE; -IOPAMIDOL (ISOVUE-300) 100 ML BTL ONE
== END ==
LOC: FIMAGING 06:39
PROVIDERS: ATTEND Physician Assistant Medical
DX: K86.3 Pseudocyst of pancreas (principal); N13.30 Unspecified hydronephrosis; K85.90 Acute pancreatitis without necrosis or infection, unspecified; K57.30 Diverticulosis of large intestine without perforation or abscess without bleeding
CPT/HCPCS: A9585

== ENCOUNTER → 2018-03-28 | Outpatient (CLI) | payer MEDICAID ==
[~2018-03-28] MED LIST changes: -GADOBUTROL 10 ML VIAL IVP ONE; +IOPAMIDOL (ISOVUE-300) 100 ML BTL ONE
== END ==
LOC: CIMAGING 09:16
PROVIDERS: ATTEND Physician Assistant
DX: K86.2 Cyst of pancreas (principal)
CPT/HCPCS: 74160-PO; Q9967